=== PATIENT | female | born 1980 | race Caucasian/White ===

== ENCOUNTER 2016-04-26 21:49 | Emergency (ER) | payer BC ==
[~2016-04-26] VITALS: Ht 177.8 cm; Wt 70.5 kg
[~2016-04-26 21:49] MED LIST: CIPRO 500MG TA500 MG PO; LEXAPRO 10MG10 MG PO; NORCO 325 MG-51 TAB PO; ZOFRAN8 MG PO
[2016-04-26 21:50] VITALS: TEMP 97.8
[2016-04-26] MEDS ORDERED: LIALDA 1.2 GM1.2 GM PO (21:56)
[2016-04-26] MEDS ORDERED: PROVENTIL0.09 MG/A1 IH (21:56)
[2016-04-26] MEDS ORDERED: ANTIBIOTIC (21:57)
[2016-04-26] MEDS ORDERED: ZOFRAN8 MG PO (22:18)
[2016-04-26] MEDS ORDERED: ULTRAM 50MG TAB50 MG PO (22:19)
[2016-04-26 22:36] LABS: ADJUSTED CALCIUM 9.7 mg/dL (8.4-10.2); ALBUMIN 4.5 gm/dL (3.5-5.0); BILIRUBIN,TOTAL 0.9 mg/dL (0.0-1.0); CALCIUM 10.1 mg/dL (8.4-10.2); CREATININE, serum 0.85 mg/dL (0.52-1.25); POTASSIUM 3.8 mmol/L (3.4-5.0); TOTAL PROTEIN 8.3 gm/dL (6.4-8.2)
[2016-04-26 23:22] VITALS: BP 103/62; PULSE 61
== END 2016-04-26 23:23 | disposition home or self-care (01) ==
LOC: COL.ER 21:49
PROVIDERS: Emergency Medicine
DX: R10.13 Epigastric pain (principal); R11.10 Vomiting, unspecified; R19.7 Diarrhea, unspecified
CPT/HCPCS: J1170; J1885; J2405; J7030

== ENCOUNTER → 2019-02-27 | Outpatient (CLI) | payer BC ==
[~2019-02-27] MED LIST changes: +ANTIBIOTIC; +DESYREL 50MG50 MG PO; +LIALDA 1.2 GM1.2 GM PO; +PROVENTIL0.09 MG/A1 IH; +ULTRAM 50MG TAB50 MG PO
== END ==
LOC: BHSO 11:03
DX: F33.41 Major depressive disorder, recurrent, in partial remission (principal)

== ENCOUNTER → 2019-04-05 | Outpatient (CLI) | payer BC | LOC: BHSO 08:34 | DX: F33.41 Major depressive disorder, recurrent, in partial remission (principal) | CPT/HCPCS: G0463 ==

== ENCOUNTER → 2019-05-10 | Outpatient (CLI) | payer BC | LOC: BHSO 08:35 | DX: F33.42 Major depressive disorder, recurrent, in full remission (principal) | CPT/HCPCS: G0463 ==

== ENCOUNTER → 2020-01-19 | Outpatient (CLI) | payer BC | LOC: BHSO 08:37 | DX: F43.10 Post-traumatic stress disorder, unspecified (principal) | CPT/HCPCS: G0463 ==